=== PATIENT | female | born 1955 | race Caucasian/White ===

== ENCOUNTER 2017-10-20 11:56 | Emergency (ER) | payer OTHER | END 2017-10-20 12:56 | disposition home or self-care (01) | LOC: BURERS 11:56 | DX: B02.9 Zoster without complications (principal); F17.210 Nicotine dependence, cigarettes, uncomplicated; Z85.118 Personal history of other malignant neoplasm of bronchus and lung ==

== ENCOUNTER 2020-02-24 13:45 | Emergency (ER) | payer OTHER ==
[2020-02-24] MEDS ORDERED: Fentanyl 100 MCG/2 ML VIAL ONE (14:07)
--- NOTE | 2020-02-24 17:42 | RAD ---
LEFT KNEE FOUR VIEWS: 02/24/20 There is a fracture through the mid portion of the patella that is roughly horizontal but irregular. There is wide distraction of the fracture fragments. A joint effusion is present as expected. The dis cris femur and proximal tibia both appeared intact. IMPRESSION: Displaced/distracted patellar fracture. POS: HOME
== END 2020-02-24 15:35 | disposition home or self-care (01) ==
LOC: BURERS 13:45
DX: S82.032A Displaced transverse fracture of left patella, initial encounter for closed fracture (principal); J44.9 Chronic obstructive pulmonary disease, unspecified; F17.210 Nicotine dependence, cigarettes, uncomplicated; W01.0XXA Fall on same level from slipping, tripping and stumbling without subsequent striking against object, initial encounter
CPT/HCPCS: 96374; J3010